=== PATIENT | male | born 1965 | race Caucasian/White ===

== ENCOUNTER 2017-09-16 05:18 | Emergency (ER) | payer BC ==
--- NOTE | 2017-09-16 05:55 | Emergency Department Record ---
History of Present Illness - General Chief Complaint: Wound, check Stated Complaint: CYST ON CHEST Time Seen by Provider: 09/16/17 05:34 Source: Patient Mode of arrival: Ambulatory Limitations: No limitations - History of Present Illness Initial Comments: pt has had a ;cyst' on his chest for 3 mos that is getting bigger. he went to dr ch on tuesday and was started on keflex. he comes in this am because it is more tender and larger MD Complaint: Other Onset/Timin -: Month(s) Initial Visit For: Abscess Returns Today for: Other Symptoms Since Prior Visit: Worsening pain, Worsening redness, Worsening swelling Associated Symptoms: None - Related Data Home Medications Medication Instructions Recorded Confirmed Last Taken Albuterol Sulfate [Ventolin Hfa] 1 - 2 puff IH .EVERY 4-6 HOURS PRN 09/16/17 Unknown Cephalexin [Keflex] 500 mg PO TID 09/16/17 09/16/17 Unknown Loratadine [Claritin] 10 mg PO DAILY 09/16/17 09/16/17 Unknown Previous Rx's Medication Instructions Recorded Clindamycin HCl [Cleocin HCl] 150 mg PO Q6H #40 cap 09/16/17 Clindamycin HCl [Cleocin HCl] 300 mg PO Q6HR #40 capsule 09/16/17 Hydrocodone/Acetaminophen [[place] 1 tab PO Q6H PRN #10 tab 09/16/17 5mg/325mg] Allergies Allergy/AdvReac Type Severity Reaction Status Date / Time No Known Drug Allergies Allergy Verified 05/27/16 21:21 Travel Screening - Travel/Exposure Within Last 30 Days Have you traveled within the last 30 days?: Yes Location Detail:: [place] - Travel Symptoms Symptom Screening: None Review of Systems Reviewed: No additional complaints except as noted below Constitutional: Reports: As per HPI. Denies: Chills, Fever, Malaise, Night sweats, Weakness, Weight change Eyes: Reports: As per HPI. Denies: Eye discharge, Eye pain, Photophobia, Vision change ENT: Reports: As per HPI. Denies: Congestion, Dental pain, Ear pain, Epistaxis , Hearing loss, Throat pain Respiratory: Reports: As per HPI. Denies: Cough, Dyspnea, Hemoptysis, Stridor, Wheezes Cardiovascular: Reports: As per HPI. Denies: Arrhythmia, Chest pain, Dyspnea on exertion, Edema, Murmurs, Orthopnea, Palpitations, Paroxysmal nocturnal dyspnea, Rheumatic Fever, Syncope Endocrine: Reports: As per HPI. Denies: Fatigue, Heat or cold intolerance, Polydipsia, Polyuria Gastrointestinal: Reports: As per HPI. Denies: Abdominal pain, Constipation, Diarrhea, Hematemesis, Hematochezia, Melena, Nausea, Vomiting Genitourinary: Reports: As per HPI. Denies: Dysuria, Frequency, Hematuria, Incontinence, Retention, Testicular pain, Testicular mass, Urgency Musculoskeletal: Reports: As per HPI. Denies: Arthralgia, Back pain, Gout, Joint swelling, Myalgia, Neck pain Skin: Reports: As per HPI. Denies: Bruising, Change in color, Change in hair/ nails, Lesions, Pruritus, Rash Neurological: Reports: As per HPI. Denies: Abnormal gait, Confusion, Headache, Numbness, Paresthesias, Seizure, Tingling, Tremors, Vertigo, Weakness Psychiatric: Reports: As per HPI. Denies: Anxiety, Auditory hallucinations, Depression, Homicidal thoughts, Suicidal thoughts, Visual hallucinations Hematological/Lymphatic: Reports: As per HPI. Denies: Anemia, Blood Clots, Easy bleeding, Easy bruising, Swollen glands Past Medical History - SOCIAL HISTORY Smoking Status: Never smoker - RESPIRATORY Hx Respiratory Disorders: Yes Hx Asthma: Yes - CARDIOVASCULAR Hx Cardio Disorders: No - NEURO Hx Neuro Disorders: No - GI Hx GI Disorders: No - Hx Genitourinary Disorders: No - ENDOCRINE Hx Endocrine Disorders: No - MUSCULOSKELETAL Hx Musculoskeletal Disorders: No - PSYCH Hx Psych Problems: No - HEMATOLOGY/ONCOLOGY Hx Hematology/Oncology Disorders: No Family Medical History Any Significant Family History?: Yes Hx Resp Disorders: Mother Physical Exam - General General Appearance: Alert, Oriented x3, Cooperative, Mild distress - Head Head exam: Normal inspection - Eye Eye exam: Normal appearance, PERRL, EOMI Pupils: Normal accommodation - ENT ENT exam: Normal exam, Mucous membranes moist, Normal external ear exam, Normal orophraynx Ear exam: Normal external inspection. negative: External canal tenderness Nasal Exam: Normal inspection. negative: Discharge, Sinus tenderness Mouth exam: Normal external inspection, Tongue normal Teeth exam: Normal inspection. negative: Dental caries Throat exam: Normal inspection. negative: Tonsillar erythema, Tonsillar exudate - Neck Neck exam: Normal inspection, Full ROM. negative: Tenderness - Respiratory Respiratory exam: Normal lung sounds bilaterally, Chest wall tenderness. negative: Respiratory distress - Cardiovascular Cardiovascular Exam: Regular rate, Normal rhythm, Normal heart sounds - GI/Abdominal GI/Abdominal exam: Soft, Normal bowel sounds. negative: Tenderness - Rectal Rectal exam: Deferred - exam: Deferred - Extremities Extremities exam: Normal inspection, Full ROM, Normal capillary refill. negative: Tenderness Image of Full Body: 1 - mass that is erythematous, tender, slight pustule on top - Back Back exam: Reports: Normal inspection, Full ROM. Denies: Muscle spasm, Rash noted, Tenderness - Neurological Neurological exam: Alert, CN II-XII intact, Normal gait, Oriented X3 - Psychiatric Psychiatric exam: Normal affect, Normal mood - Skin Skin exam: Dry, Intact, Normal color, Warm Course Vital Signs 09/16/17 05:28 Temperature 98.4 F Pulse Rate [ 78 Pulse Ox Probe] Respiratory 18 Rate Blood Pressure 144/96 [Left Arm] Pulse Ox 96 Medical Decision Making - Lab Data Result diagrams: 09/16/17 05:50 09/16/17 05:50 Disposition Disposition: Discharge Clinical Impression: Abscess Disposition: Home, Self-Care Instructions: Wound Infection (ED), Wound Healing and Your Diet (ED), Abscess ( ED) Additional Instructions: recheck in 24 hours. return sooner if worse. follow up with dr ponce Prescriptions: Clindamycin HCl [Cleocin HCl] 300 mg PO Q6HR #40 capsule Clindamycin HCl [Cleocin HCl] 150 mg PO Q6H #40 cap Hydrocodone/Acetaminophen [[place] 5mg/325mg] 1 tab PO Q6H PRN #10 tab PRN Reason: Pain - General Referrals: Danie Ponce [DOCTOR OF OSTEOPATH] - [facility] [Provider Group] Forms: Patient Portal Access Quality - Quality Measures Quality Measures: N/A - Blood Pressure Screening Does Patient Have Any of the Following: No Blood Pressure Classification: Pre-Hypertensive BP Reading Systolic Measurement: 129 Diastolic Measurement: 69 Screening for High Blood Pressure: < Pre-Hypertensive BP, F/U Documented > [ G8950] Pre-Hypertensive Follow-up Interventions: Follow-up with rescreen every year.
[2017-09-16 06:00] LABS: BASO % 0.5 % (0-6); EOS % 2.3 % (0-6); GRAN % 71.2 % (47-80); HEMATOCRIT 43.2 % (42.0-52.0); HEMOGLOBIN 14.8 gm/dl (14.0-18.0); LYMPH % 13.8 % (16-45); MEAN CELL VOLUME 86.4 fl (81-97); MEAN CORPUSCULAR HEMOGLOBIN 29.6 pg (27-33); MEAN CORPUSCULAR HGB CONC 34.3 g/dl (32-36); MEAN PLATELET VOLUME 9.5 fl (7.4-10.4); MONO % 12.2 % (0-9); PLATELET COUNT 314 K/uL (130-400); RED CELL DISTRIBUTION WIDTH 12.7 % (11.5-14.5); WHITE BLOOD COUNT W/O DIFF 7.8 K/uL (4.2-12.2)
[2017-09-16] MEDS ORDERED: IBUPROFEN 600 MG TABLET PO ONE (06:01)
[2017-09-16 06:15] LABS: BLOOD UREA NITROGEN 14 mg/dL (6-20); CREATININE 0.9 mg/dL (0.7-1.2); EST GLOMERULAR FILTRATION RATE > 60 mL/min
[2017-09-16 06:18] LABS: GLUCOSE,RANDOM 108 mg/dL (74-109)
[2017-09-16] MEDS ORDERED: HYDROCODONE/APAP 5/325MG TABLET PO ONE (07:15)
[2017-09-16] MEDS ORDERED: CLINDAMYCIN 150 MG CAP PO SCH (07:30)
--- NOTE | 2017-09-16 10:26 | CT SCAN REPORT ---
EXAM: CT SCAN CHEST W CONTRAST HISTORY: CHEST PAIN FOR TWO TO THREE MONTHS. MASS IN THE ANTERIOR CHEST. TECHNIQUE: CT of the chest was performed following the IV administration of 100 mL Omnipaque-300 contrast. COMPARISON: Chest x-ray from 05/27/16. FINDINGS: Visualized thyroid gland enhances normally. The mediastinal vasculature enhances normally. Nonenlarged mediastinal and hilar lymph nodes. The heart and pericardium are unremarkable. Limited evaluation of the upper abdomen shows fatty infiltrative change to the liver. Osseous structures are grossly intact. No pneumothorax. The visualized airways are patent. There is an approximately 5.3 mm nodule in the superior aspect of the right lung base with minimal adjacent reticulonodular change. Lungs are otherwise clear. There is an approximately 2.2 x 2.0 cm complex cystic mass in the anterior right subcutaneous fat of the right chest wall. There are surrounding inflammatory changes. There is adjacent skin thickening. This may relate to small abscess or infected sebaceous cyst. Clinical follow-up recommended. IMPRESSION: 1. PROBABLE SMALL ABSCESS OR INFECTED SEBACEOUS CYST IN THE SUPERFICIAL FAT OF THE ANTERIOR RIGHT CHEST WALL. 2. A 5.3 MM NODULE IN THE SUPERIOR SEGMENT OF THE RIGHT LUNG BASE WITH ADJACENT RETICULONODULAR CHANGE. RECOMMEND SIX-MONTH FOLLOW-UP TO ENSURE STABILITY. JOB NUMBER: [id number] MTDD
== END 2017-09-16 07:39 | disposition home or self-care (01) ==
LOC: ER 05:18
DX: L02.213 Cutaneous abscess of chest wall (principal)
CPT/HCPCS: 71260; 80048; 85025; 99283; 99284

== ENCOUNTER 2017-09-17 13:11 | Emergency (ER) | payer BC ==
--- NOTE | 2017-09-17 13:39 | Emergency Department Record ---
History of Present Illness - General Chief Complaint: Wound, check Stated Complaint: RECHECK CHEST SORE Time Seen by Provider: 09/17/17 13:17 - History of Present Illness Initial Comments: abscess is draining purulent material and it is still red and painful Onset/Timin -: Week(s) Initial Visit For: Abscess Returns Today for: Wound recheck Symptoms Since Prior Visit: Worsening discharge, Worsening redness Associated Symptoms: Nausea - Related Data Previous Rx's Medication Instructions Recorded Clindamycin HCl [Cleocin HCl] 150 mg PO Q6H #40 cap 09/16/17 Clindamycin HCl [Cleocin HCl] 300 mg PO Q6HR #40 capsule 09/16/17 Hydrocodone/Acetaminophen [[place] 1 tab PO Q6H PRN #10 tab 09/16/17 5mg/325mg] Allergies Allergy/AdvReac Type Severity Reaction Status Date / Time No Known Drug Allergies Allergy Verified 09/17/17 13:19 Travel Screening - Travel/Exposure Within Last 30 Days Have you traveled within the last 30 days?: No - Travel/Exposure Within Last Year Have you traveled outside the [place] in the last year?: No - Additonal Travel Details Have you been exposed to anyone with a communicable illness?: No - Travel Symptoms Symptom Screening: None Past Medical History - SOCIAL HISTORY Smoking Status: Never smoker - RESPIRATORY Hx Respiratory Disorders: Yes Hx Asthma: Yes - CARDIOVASCULAR Hx Cardio Disorders: No - NEURO Hx Neuro Disorders: No - GI Hx GI Disorders: No - Hx Genitourinary Disorders: No - ENDOCRINE Hx Endocrine Disorders: No - MUSCULOSKELETAL Hx Musculoskeletal Disorders: No - PSYCH Hx Psych Problems: No - HEMATOLOGY/ONCOLOGY Hx Hematology/Oncology Disorders: No Family Medical History Any Significant Family History?: Yes Hx Resp Disorders: Mother Course Vital Signs 09/17/17 13:13 Temperature 97.9 F Pulse Rate 79 Respiratory 20 Rate Blood Pressure 142/89 Pulse Ox 96 - Reevaluation(s) Reevaluation #1: expressed lots of purulent material out of incision in two spots 09/17/17 13:44 Disposition Clinical Impression: Abscess Disposition: Home, Self-Care Condition: (1) Good Instructions: Wound Infection (ED) Additional Instructions: follow up with Dr. Cooper or Liliam on continue clindamycin 450 mg three times a day for 10 days and cultures are pending norco for pain warm compresses and hot shower to keep the incision open Forms: Patient Portal Access Time of Disposition: 13:48 Quality - Quality Measures Quality Measures: N/A - Blood Pressure Screening Does Patient Have Any of the Following: No Blood Pressure Classification: Pre-Hypertensive BP Reading Systolic Measurement: 142 Diastolic Measurement: 89 Screening for High Blood Pressure: < Pre-Hypertensive BP, F/U Documented > [ G8950] Pre-Hypertensive Follow-up Interventions: Referral to alternative/primary care provider.
[2017-09-17] MEDS ORDERED: ONDANSETRON 4 MG ODT TABLET SL ONE (13:56)
== END 2017-09-17 14:01 | disposition home or self-care (01) ==
LOC: ER 13:11
DX: L02.213 Cutaneous abscess of chest wall (principal)
CPT/HCPCS: 99282

== ENCOUNTER 2018-02-10 07:36 | Day surgery (SDC) | payer BC ==
[2018-02-10] MEDS ORDERED: LIDOCAINE 2% MDV (20MG/ML) 20ML VIAL IV ONE (07:37)
[2018-02-10] MEDS ORDERED: PROPOFOL 10 MG/ML VIAL IV ONE (07:37)
[2018-02-10] MEDS ORDERED: MIDAZOLAM HCL 2MG/2ML VIAL IV ONE (07:37)
--- NOTE | 2018-02-14 12:20 | Operative Note ---
DATE OF SURGERY: 02/10/2018 SURGEON: Chele Luis MD OPERATION: COLONOSCOPY. INDICATIONS: This is a 52-year-old male with history of left lower quadrant abdominal pain and rectal bleeding who presented for colonoscopy. POSTOPERATIVE DIAGNOSES: 1. Grade 1 internal hemorrhoids. 2. Otherwise normal colon. ANESTHESIA: Sedation is per Anesthesia. Pulse oximetry was monitored throughout the procedure to maintain O2 saturation of 90% or greater. Supplemental oxygen was administered via nasal cannula. Cardiac and vital signs were monitored throughout the duration of the procedure, and they were stable. The procedure of colonoscopy and risks and alternatives of the procedure, including the risk of bleeding and perforation, among others, were explained to the patient who voiced understanding and agreed to have the procedure done. Physical examination was performed, and the patient was found stable for sedation. PROCEDURE: The patient was placed in the left lateral position. Sedation was initiated. A digital rectal exam was performed and showed some mild external hemorrhoids with no palpable rectal masses. An Olympus PCF-180AL colonoscope was then inserted into the rectum under direct visualization. It was advanced to the cecum without difficulty. The ileocecal valve and appendiceal orifice were identified and photographed. The colonic mucosa was carefully examined upon introduction of the colonoscope. There were no lesions noted. The bowel prep was good. The colonoscope was then withdrawn while carefully examining the colonic mucosal surfaces. No lesions were noted. In the rectum, retroflexion was performed and grade 1 internal hemorrhoids were noted. The colonoscope was then withdrawn and the procedure was terminated. The patient tolerated the procedure well without any immediate complications. He remained with stable vital signs and was transferred to the recovery room. RECOMMENDATIONS: 1. The patient should be on a high-fiber diet. 2. The patient is to have a repeat colonoscopy for screening in 10 years. Thank you for allowing me to participate in the care of your patient. CC: TAINA BRAVO MD, FACP [facility]
== END 2018-02-10 09:40 | disposition home or self-care (01) ==
LOC: HOP 07:36
PROVIDERS: ATTEND Internal Medicine Gastroenterology
DX: K62.5 Hemorrhage of anus and rectum (principal); R10.32 Left lower quadrant pain; K64.0 First degree hemorrhoids

== ENCOUNTER 2018-05-04 17:49 | Emergency (ER) | payer BC ==
--- NOTE | 2018-05-04 17:57 | Emergency Department Record ---
History of Present Illness - General Chief Complaint: Back Pain/Injury Stated Complaint: BACK PAIN Time Seen by Provider: 05/04/18 17:56 Source: Patient Mode of Arrival: Wheelchair Limitations: No limitations - History of Present Illness Initial Comments: The patient is here due to worsening of his chronic low back pain. He states he has a long hx of R lower back pain due to one leg being longer than the other. He was recently on vacation and did not wear his heel lifts and it caused his pain to flare up. The pain is a sharp stabbing aching pain in the R SI area that intermittently radiates down the back of his R leg. He denies any leg weakness, numbness, or any bowel or bladder issues. He did see his Chiropractor today who took xrays and told him his L3-5 vertebrae were not quite aligned properly. He also did see his PCP today who gave him a steroid shot and a muscle relaxer. MD Complaint: Back pain Onset/Timin -: Week(s) Similar Symptoms Previously: Yes Place: Other Severity scale (1-10): 9 Quality: Aching, Dull, Stabbing Consistency: Constant Worsens With: None Context: Unknown Treatments Prior to Arrival: Heat therapy, Prescription analgesics Treatment Prior to Arrival Comment:: 2- norco 5mg, 1 - flexeril - Related Data Home Medications Medication Instructions Recorded Confirmed Last Taken Cyclobenzaprine HCl [Flexeril] 10 mg PO TID 05/04/18 05/04/18 05/04/18 Previous Rx's Medication Instructions Recorded Hydrocodone/Acetaminophen [[place] 1 tab PO Q6H PRN #10 tab 09/16/17 5mg/325mg] Allergies Allergy/AdvReac Type Severity Reaction Status Date / Time No Known Drug Allergies Allergy Verified 09/17/17 13:19 Travel Screening - Travel/Exposure Within Last 30 Days Have you traveled within the last 30 days?: No - Travel/Exposure Within Last Year Have you traveled outside the [place] in the last year?: No - Additonal Travel Details Have you been exposed to anyone with a communicable illness?: No - Travel Symptoms Symptom Screening: None Review of Systems Constitutional: Denies: Chills, Fever Eyes: Denies: Eye discharge ENT: Denies: Congestion Respiratory: Denies: Cough, Dyspnea Cardiovascular: Denies: Arrhythmia Past Medical History - SOCIAL HISTORY Smoking Status: Never smoker Alcohol Use: None Drug Use: Rare Drug Use Detail:: Marijuana - RESPIRATORY Hx Respiratory Disorders: Yes Hx Asthma: Yes Hx Sleep Apnea: Yes Hx of CPAP: Yes - CARDIOVASCULAR Hx Cardio Disorders: No - NEURO Hx Neuro Disorders: Yes Hx Headaches: Yes - GI Hx GI Disorders: Yes Hx Abdominal Pain: Yes (intermittent) Hx Reflux: Yes Hx Irritable Bowel: Yes Hx Rectal Bleeding: Yes (bright red) - Hx Genitourinary Disorders: No - ENDOCRINE Hx Endocrine Disorders: No - MUSCULOSKELETAL Hx Musculoskeletal Disorders: Yes Hx Arthritis: Yes - PSYCH Hx Psych Problems: No - HEMATOLOGY/ONCOLOGY Hx Hematology/Oncology Disorders: No Family Medical History Any Significant Family History?: No Hx Resp Disorders: Mother Physical Exam - General General Appearance: Alert, Oriented x3, Cooperative, Mild distress (due to low back pain.) - Head Head exam: Atraumatic, Normocephalic, Normal inspection - Eye Eye exam: Normal appearance, PERRL - Neck Neck exam: Normal inspection, Full ROM. negative: Tenderness - Respiratory Respiratory exam: Normal lung sounds bilaterally. negative: Respiratory distress - Cardiovascular Cardiovascular Exam: Regular rate, Normal rhythm, Normal heart sounds - GI/Abdominal GI/Abdominal exam: Soft, Normal bowel sounds. negative: Tenderness - Extremities Extremities exam: Normal inspection, Full ROM, Normal capillary refill. negative: Tenderness - Back Back exam: Reports: Normal inspection. Denies: Paraspinal tenderness, Vertebral tenderness Image of Body Front/Back: 1 - Area where the pain eminates from. - Neurological Neurological exam: Alert, Normal gait, Oriented X3, Reflexes normal (The patellar reflexes are 2+ and equal bilaterally and the achilles reflexes are 1+ and equal bilaterally. ), Other (There is a neg SLR on the L but a pos SLR on the R at 90 degrees.). negative: Abnormal gait, Altered, Motor sensory deficit Course Vital Signs 05/04/18 17:50 Temperature 96.1 F L Pulse Rate 78 Respiratory 20 Rate Blood Pressure 139/103 Pulse Ox 96 - Reevaluation(s) Reevaluation #1: The patient is doing much better at this time after the pain shots. He is able to get up with no difficulty and walk with no leg weakness or limping. I did explain the need to see his PCP to get an MRI ordered. He is to return to the ER for any worsening symptoms. 05/04/18 18:39 Disposition Disposition: Discharge Clinical Impression: Low back pain Qualifiers: Chronicity: acute Back pain laterality: right Sciatica presence: unspecified whether sciatica present Qualified Code(s): M54.5 - Low back pain Disposition: Home, Self-Care Condition: (2) Stable Instructions: Low Back Strain (ED) Additional Instructions: Please continue the Motrin, [place] and Flexeril. Please call you family doctor tomorrow for a recheck appointment and to have an MRI ordered. Please return to the ER for any worsening pain, leg numbness, weakness, or any bowel or bladder incontinence or inability to go. Forms: Patient Portal Access Time of Disposition: 18:41 Quality - Quality Measures Quality Measures: N/A - Blood Pressure Screening View Details: Yes Does Patient Have Any of the Following: No Blood Pressure Classification: Hypertensive Reading Systolic Measurement: 149 Diastolic Measurement: 96 Screening for High Blood Pressure: < First Hypertensive BP, F/U Documented > [ G8950] First Hypertensive Follow-up Interventions: Referral to alternative/primary care provider.
[2018-05-04] MEDS ORDERED: KETOROLAC 30 MG/ML VIAL IM ONE (18:00)
[2018-05-04] MEDS ORDERED: ORPHENADRINE CITRATE 60MG/2ML VIAL IM ONE (18:00)
[2018-05-04] MEDS ORDERED: ONDANSETRON 4 MG ODT TABLET SL ONE (18:01)
[2018-05-04] MEDS ORDERED: MORPHINE SULFATE 10 MG/ML VIAL IM ONE (18:01)
== END 2018-05-04 18:47 | disposition home or self-care (01) ==
LOC: ER 17:49
DX: G89.29 Other chronic pain (principal); M54.5 Low back pain
CPT/HCPCS: 99283 ×2; 96372; J1885; J2270

== ENCOUNTER 2019-07-18 16:19 | Emergency (ER) | payer BC ==
--- NOTE | 2019-07-18 17:22 | Emergency Department Record ---
History of Present Illness - General Chief Complaint: Abdominal Pain Stated Complaint: ABD PAIN,BLOOD IN STOOL,HEADACHE Time Seen by Provider: 07/18/19 17:11 Source: Patient, RN notes reviewed Mode of Arrival: Ambulatory - History of Present Illness Initial Comments: boody stools 10 days ago with bright red with wiping on the rectum and some blood on the edges of brown formed stool. Previously he had this two or three times and it was hemorrhoids. He had a colonoscopy 2 years ago at [facility] and that was negative. 10 days ago he had a cough and no advil or NSAID taken and that is getting better. patient states rectal pain with BM Onset/Timin -: Hour(s) Location: [facility] Radiation: None Migration to: No migration Severity: Mild Severity scale (1-10): 3 Quality: Cramping Consistency: Constant Improves With: Nothing Associated Symptoms: Denies other symptoms - Related Data Previous Rx's Medication Instructions Recorded Hydrocodone/Acetaminophen [[place] 1 tab PO Q6H PRN #10 tab 09/16/17 5mg/325mg] Hydrocortisone Acetate [Anusol-Hc] 25 mg RC BID #14 supp.rect 07/18/19 Allergies Allergy/AdvReac Type Severity Reaction Status Date / Time No Known Drug Allergies Allergy Verified 09/17/17 13:19 Travel Screening - Travel/Exposure Within Last 30 Days Have you traveled within the last 30 days?: No - Travel/Exposure Within Last Year Have you traveled outside the [place] in the last year?: No - Additonal Travel Details Have you been exposed to anyone with a communicable illness?: No - Travel Symptoms Symptom Screening: Headache Review of Systems Reviewed: No additional complaints except as noted below Constitutional: Reports: As per HPI. Denies: Chills, Fever, Malaise, Night sweats, Weakness, Weight change Eyes: Reports: As per HPI. Denies: Eye discharge, Eye pain, Photophobia, Vision change ENT: Reports: As per HPI. Denies: Congestion, Dental pain, Ear pain, Epistaxis, Hearing loss, Throat pain Respiratory: Reports: As per HPI. Denies: Cough, Dyspnea, Hemoptysis, Stridor, Wheezes Cardiovascular: Reports: As per HPI. Denies: Arrhythmia, Chest pain, Dyspnea on exertion, Edema, Murmurs, Orthopnea, Palpitations, Paroxysmal nocturnal dyspnea, Rheumatic Fever, Syncope Endocrine: Reports: As per HPI. Denies: Fatigue, Heat or cold intolerance, Polydipsia, Polyuria Gastrointestinal: Reports: As per HPI, Other (history of hemorrhoids). Denies: Abdominal pain, Constipation, Diarrhea, Hematemesis, Hematochezia, Melena, Nausea, Vomiting Genitourinary: Reports: As per HPI. Denies: Dysuria, Frequency, Hematuria, Incontinence, Retention, Testicular pain, Testicular mass, Urgency Musculoskeletal: Reports: As per HPI. Denies: Arthralgia, Back pain, Gout, Joint swelling, Myalgia, Neck pain Skin: Reports: As per HPI. Denies: Bruising, Change in color, Change in hair/nails, Lesions, Pruritus, Rash Neurological: Reports: As per HPI. Denies: Abnormal gait, Confusion, Headache, Numbness, Paresthesias, Seizure, Tingling, Tremors, Vertigo, Weakness Psychiatric: Reports: As per HPI. Denies: Anxiety, Auditory hallucinations, Depression, Homicidal thoughts, Suicidal thoughts, Visual hallucinations Hematological/Lymphatic: Reports: As per HPI. Denies: Anemia, Blood Clots, Easy bleeding, Easy bruising, Swollen glands Past Medical History - SOCIAL HISTORY Smoking Status: Never smoker Alcohol Use: None Drug Use: None - RESPIRATORY Hx Respiratory Disorders: Yes Hx Asthma: Yes Hx Sleep Apnea: Yes Hx of CPAP: Yes - CARDIOVASCULAR Hx Cardio Disorders: No - NEURO Hx Neuro Disorders: Yes Hx Headaches: Yes - GI Hx GI Disorders: Yes Hx Abdominal Pain: Yes (intermittent) Hx Reflux: Yes Hx Irritable Bowel: Yes Hx Rectal Bleeding: Yes (bright red) - Hx Genitourinary Disorders: No - ENDOCRINE Hx Endocrine Disorders: No - MUSCULOSKELETAL Hx Musculoskeletal Disorders: Yes Hx Arthritis: Yes - PSYCH Hx Psych Problems: No - HEMATOLOGY/ONCOLOGY Hx Hematology/Oncology Disorders: No Family Medical History Any Significant Family History?: No Hx Resp Disorders: Mother Physical Exam - General General Appearance: Alert, Oriented x3, Cooperative, No acute distress - Head Head exam: Normal inspection - Eye Eye exam: Normal appearance, PERRL Pupils: Normal accommodation - ENT ENT exam: Normal exam, Mucous membranes moist, Normal external ear exam, Normal orophraynx, TM's normal bilaterally Ear exam: Normal external inspection. negative: External canal tenderness Nasal Exam: Normal inspection. negative: Discharge, Sinus tenderness Mouth exam: Normal external inspection, Tongue normal Teeth exam: Normal inspection. negative: Dental caries Throat exam: Normal inspection. negative: Tonsillar erythema, Tonsillar exudate - Neck Neck exam: Normal inspection, Full ROM. negative: Tenderness - Respiratory Respiratory exam: Normal lung sounds bilaterally. negative: Respiratory distress - Cardiovascular Cardiovascular Exam: Regular rate, Normal rhythm, Normal heart sounds - GI/Abdominal GI/Abdominal exam: Soft, Normal bowel sounds. negative: Tenderness - Rectal Rectal exam: Heme (+) stool, Hemorrhoids (internal hemorrhiod and rectal burning) - exam: Deferred - Extremities Extremities exam: Normal inspection, Full ROM, Normal capillary refill. negative: Tenderness - Back Back exam: Reports: Normal inspection, Full ROM. Denies: Muscle spasm, Rash noted, Tenderness - Neurological Neurological exam: Alert, Normal gait, Oriented X3, Reflexes normal - Psychiatric Psychiatric exam: Normal affect, Normal mood - Skin Skin exam: Dry, Intact, Normal color, Warm Course Vital Signs 07/18/19 16:56 Temperature 98.5 F Pulse Rate 69 Respiratory 14 Rate Blood Pressure 169/117 Pulse Ox 98 Medical Decision Making - Data Complexity MDM Data: Labs Ordered and/or Reviewed (hg 16.8) - Lab Data Result diagrams: 07/18/19 17:35 Disposition Clinical Impression: Rectal or anal pain Hemorrhoid Qualifiers: Hemorrhoid type: unspecified Qualified Code(s): K64.9 - Unspecified hemorrhoids Disposition: Home, Self-Care Condition: (1) Good Instructions: Hemorrhoids (ED) Additional Instructions: follow up with Dr Cooper in 5 to 7 days Prescriptions: Hydrocortisone Acetate [Anusol-Hc] 25 mg RC BID #14 supp.rect Forms: Patient Portal Access Time of Disposition: 18:11 Quality - Quality Measures Quality Measures: N/A - Blood Pressure Screening Does Patient Have Any of the Following: No Blood Pressure Classification: Hypertensive Reading Systolic Measurement: 169 Diastolic Measurement: 117 Screening for High Blood Pressure: < First Hypertensive BP, F/U Documented > [[id number]] First Hypertensive Follow-up Interventions: Referral to alternative/primary care provider.
[2019-07-18 17:44] LABS: ABSOLUTE NEUTROPHIL COUNT 6.14; BASO % 0.7 % (0-6); EOS % 2.3 % (0-6); GRAN % 63.2 % (47-80); HEMATOCRIT 48.5 % (42.0-52.0); HEMOGLOBIN 16.8 gm/dl (14.0-18.0); LYMPH % 25.4 % (16-45); MEAN CELL VOLUME 86.6 fl (81-97); MEAN CORPUSCULAR HGB CONC 34.6 g/dl (32-36); MEAN PLATELET VOLUME 9.8 fl (7.4-10.4); MONO % 8.4 % (0-9); PLATELET COUNT 388 K/uL (130-400); WHITE BLOOD COUNT W/O DIFF 9.7 K/uL (4.2-12.2)
[2019-07-18 17:58] LABS: PARTIAL THROMBOPLASTIN TIME 27.8 SECONDS (24.5-39.1); PROTHROMBIN TIME (PATIENT) 10.2 SECONDS (9.5-12.1)
== END 2019-07-18 18:24 | disposition home or self-care (01) ==
LOC: ER 16:19
DX: K64.8 Other hemorrhoids (principal); R10.32 Left lower quadrant pain; R51 Headache
CPT/HCPCS: 85025; 85610; 85730; 99283